=== PATIENT | male | born 1985 | race Caucasian/White ===

== ENCOUNTER 2023-04-02 17:35 | Emergency (ER) | payer SELFPAY ==
[~2023-04-02] VITALS: Ht 160 cm; Wt 59.0 kg
[2023-04-02 17:55] VITALS: BP 166/108; PULSE 75; RESP 16; TEMP 98.5; O2SAT 100
[2023-04-02] MEDS ORDERED: KETOROLAC 30MG/ML VIAL IM ONE (19:15)
[2023-04-02] MEDS ORDERED: IBUP-2029 MT (19:37)
== END 2023-04-02 20:28 | disposition home or self-care (01) ==
LOC: ER 17:35
DX: M79.674 Pain in right toe(s) (principal); M10.9 Gout, unspecified
CPT/HCPCS: 99283; 96372; J1885